=== PATIENT | female | born 2000 | race Caucasian/White ===

== ENCOUNTER → 2023-06-11 | Outpatient (CLI) | payer BC ==
[~2023-06-11] MED LIST: ACET325T38 PO; CEPH500T PO; CETI10CA PO; [UNRECOGNIZED DRUG - OTHER] EACH EAR
--- NOTE | 2023-06-11 09:28 | Diagnostic Imaging Report ---
PROCEDURE: CT chest, abdomen, and pelvis without contrast. TECHNIQUE: Multiple contiguous axial images were obtained through the chest, abdomen, and pelvis without the use of intravenous contrast. Auto Exposure Controls were utilized during the CT exam to meet ALARA standards for radiation dose reduction. INDICATION: Epigastric pain, chest pain. COMPARISON: None available. FINDINGS: No significant adenopathy within the chest. No aneurysmal dilatation of the thoracic aorta. The heart is within normal limits in size. No pericardial effusion. No pleural effusion. The trachea is patent. No pneumothorax. The lungs are clear. No acute osseous abnormality within the chest. No significant hiatal hernia. The unenhanced liver and spleen are at the upper limits of normal in size, though are otherwise unremarkable. The adrenal glands are unremarkable. The unenhanced pancreas is unremarkable. The gallbladder is unremarkable. The unenhanced bilateral kidneys and ureters are unremarkable. No aneurysmal dilatation of the abdominal aorta. The urinary bladder is unremarkable. Intrauterine device is in place within the central aspect of the uterus. Adnexal structures are unremarkable for age. The appendix is unremarkable. No bowel obstruction or pneumatosis. Moderate sized stool ball within the rectal vault and distal sigmoid colon. No significant adenopathy, free air, or free fluid within the abdomen or pelvis. No acute osseous abnormality. IMPRESSION: No acute abnormality identified. Moderate amount of stool within the distal colon. Intrauterine device in place within the central aspect of the uterus. Additional findings as above. Dictated by: Dictated on workstation # [id number]
== END ==
LOC: RAD 07:07
PROVIDERS: ATTEND Nurse Practitioner Family
DX: K56.41 Fecal impaction (principal); R07.89 Other chest pain; H66.003 Acute suppurative otitis media without spontaneous rupture of ear drum, bilateral; L60.0 Ingrowing nail; H92.03 Otalgia, bilateral; Z91.014 Allergy to mammalian meats; Z97.5 Presence of (intrauterine) contraceptive device
CPT/HCPCS: 71250; 74176

== ENCOUNTER → 2023-06-13 | Outpatient (CLI) | payer BC ==
[~2023-06-13] MED LIST changes: +CATHETER FLUSH 10 ML SYR IVP PRN
--- NOTE | 2023-06-13 19:14 | Diagnostic Imaging Report ---
INDICATION: Epigastric pain. EXAMINATION: HIDA scan 06/13/2023. FINDINGS: After uneventful administration of 5.48 mCi of technetium 99m Choletec intravenously. Subsequent imaging was performed with prompt homogeneous uptake throughout the liver. Gallbladder and small bowel seen within less than 60 minutes. Subsequent administration of Ensure administered orally with continued imaging performed. Ejection fraction calculated at 7%. IMPRESSION: 1. No obstructive process. 2. Low ejection fraction. This is suggestive of chronic cholecystitis versus gallbladder dyskinesia. Correlate with symptoms. Dictated by: Dictated on workstation # [id number]
== END ==
LOC: CARD 11:22
PROVIDERS: ATTEND Nurse Practitioner Family
DX: R10.13 Epigastric pain (principal); R07.9 Chest pain, unspecified; H66.003 Acute suppurative otitis media without spontaneous rupture of ear drum, bilateral; L68.0 Hirsutism; H92.03 Otalgia, bilateral; Z91.014 Allergy to mammalian meats
CPT/HCPCS: 78227; A9537

== ENCOUNTER 2023-06-26 08:48 | Outpatient (CLI) | payer BC ==
[~2023-06-26] VITALS: Ht 167.7 cm; Wt 98.2 kg
[~2023-06-26 08:48] MED LIST changes: -CATHETER FLUSH 10 ML SYR IVP PRN
[2023-06-26] MEDS ORDERED: IBUP200C11 PO (09:39)
[2023-06-27] MEDS ORDERED: HYDR-3817 PO (15:47)
== END 2023-06-26 10:02 | disposition home or self-care (01) ==
LOC: PREOP 08:48
PROVIDERS: ATTEND Surgery
DX: Z01.818 Encounter for other preprocedural examination (principal)

== ENCOUNTER 2023-06-27 15:34 | Day surgery (SDC) | payer BC ==
[~2023-06-27] VITALS: Ht 168 cm; Wt 98.2 kg
[2023-06-27] VITALS (7 sets, daily range): BP systolic 108–136; BP diastolic 72–87
[~2023-06-27 15:34] MED LIST changes: +IBUP200C11 PO
[2023-06-27] MEDS ORDERED: morphine INJ 10 MG/ML 1ML (SYR OR VIAL) IVP PRN (15:45)
[2023-06-27] MEDS ORDERED: HYDROcodone/ACETAMINOPHEN 5 MG/325 MG TABLET PO ONE (15:45)
[2023-06-27] MEDS ORDERED: ONDANSETRON INJECTION 4 MG/2 ML (SDV) IVP PRN ×2 (15:45→18:45)
[2023-06-27] MEDS ORDERED: ACETAMINOPHEN 325 MG TABLET PO PRN (15:45)
--- NOTE | 2023-06-27 15:45 | Progress Note-Pre Operative ---
Pre-Operative Progress Note Date H&P Reviewed: Jun 27, 2023 Time H&P Reviewed: 15:45 History & Physical: H&P Reviewed, Patient Examed, No changes noted Pre-Operative Diagnosis: Symptomatic Biliary Dyskinesia CHRISSY MONCADA APRN Jun 27, 2023 15:45
[2023-06-27] MEDS ORDERED: HYDR-3817 PO (15:47)
--- NOTE | 2023-06-27 15:48 | Discharge Inst-Surgical ---
D/C Lap Instructions-KIDO Reconcile Patient Problems Problems Reviewed?: Yes New, Converted, or Re-Newed RX: RX on Chart Follow Up Appt in 2 weeks Activity as tolerated No driving for 24 hours No driving while on pain medications Incentive Spirometry use every 2 hours while awake Regular Diet Symptoms to Report: Fever over 101 degree F, Nausea/Vomiting Infection Signs and Symptoms to report: Increased redness, Foul odor of wound, Increased drainage Bathing instructions: May shower Operative Area Clean/Dry; Keep incision clean/dry If any problems/questions: Contact your physician or go to Emergency Room CHRISSY MONCADA APRN Jun 27, 2023 15:48
[2023-06-27] MEDS ORDERED: NS (IVPB) 50 ML 50 ML ONE (15:56)
[2023-06-27] MEDS ORDERED: ceFAZolin INJECTION 2,000 MG ONE (15:56)
[2023-06-27] MEDS: LACTATED RINGERS 1,000 ML 1,000 ML IV PRN ×2 (16:40→18:20)
[2023-06-27] MEDS ORDERED: ceFAZolin INJECTION 2,000 MG in NS (IVPB) 50 ML 50 ML IV ONE (16:45)
[2023-06-27] MEDS ORDERED: LIDOCAINE PF 2% 5 ML VIAL ONE (17:15)
[2023-06-27] MEDS ORDERED: MIDAZOLAM INJ 2 MG/2 ML VIAL ONE (17:15)
[2023-06-27] MEDS ORDERED: proPOfol INJECTION 200 MG/20 ML VIAL IV ONE (17:15)
[2023-06-27] MEDS ORDERED: SEVOFLURANE (ULTANE) 15 ML INHAL SOLN ONE ×2 (17:15→18:02)
[2023-06-27] MEDS ORDERED: fentaNYL INJECTION 100 MCG/2 ML VIAL ONE ×2 (17:15→19:08)
[2023-06-27] MEDS ORDERED: ONDANSETRON INJECTION 4 MG/2 ML (SDV) ONE (17:15)
[2023-06-27] MEDS ORDERED: LIDOCAINE/EPI 1%-1:200,000 (XYLOCAINE) 30 ML VIAL ONE (17:17)
[2023-06-27] MEDS ORDERED: LIDOCAINE/EPI 1%-1:200,000 (XYLOCAINE) 30 ML VIAL INJ ONE (18:03)
[2023-06-27] MEDS ORDERED: NEOSTIGMINE 1 MG/1ML 10 ML VIAL ONE (18:15)
[2023-06-27] MEDS ORDERED: GLYCOPYRROLATE INJ 0.2 MG/ML 2 ML VIAL ONE (18:15)
[2023-06-27] MEDS ORDERED: ROCURONIUM 50 MG/5 ML VIAL IV ONE (18:18)
--- NOTE | 2023-06-27 18:27 | Progress Note-Post Operative ---
Post-Operative Progess Note Surgeon (s)/Public Health Sanitarian Technician (s) Surgeon ALEX SALAZAR MD Public Health Sanitarian Technician: alfredito diaz POWDERED METAL SUPERVISOR Pre-Operative Diagnosis Symptomatic Biliary Dyskinesia Post-Operative Diagnosis same Procedure & Operative Findings Date of Procedure 06/27/23 Procedure Performed/Findings laparoscopic cholecystectomy Anesthesia Type get Estimated Blood Loss Estimated blood loss (mL): minimal Specimens/Packing Specimens Removed gallbladder ALEX SALAZAR MD Jun 27, 2023 18:27
--- NOTE | 2023-06-27 18:33 | Anesthesia-General Post-Op ---
General Patient Condition Mental Status/LOC: Same as Preop Cardiovascular: Satisfactory Nausea/Vomiting: Absent Respiratory: Satisfactory Pain: Controlled Complications: Absent Post Op Complications Complications None Follow Up Care/Instructions Patient Instructions None needed. Anesthesia/Patient Condition Patient Condition Patient is doing well, no complaints, stable vital signs, no apparent adverse anesthesia problems. No complications reported per nursing. ASHLY REYES CRNA Jun 27, 2023 18:33
[2023-06-27] MEDS ORDERED: morphine INJ 10 MG/ML 1ML (SYR OR VIAL) ONE (18:41)
[2023-06-27] MEDS ORDERED: MEPERIDINE INJ 50 MG/ML VIAL IVP ONE (18:45)
[2023-06-27] MEDS ORDERED: fentaNYL INJECTION 100 MCG/2 ML VIAL IVP ONE (18:45)
[2023-06-27] MEDS ORDERED: morphine INJ 10 MG/ML 1ML (SYR OR VIAL) IVP ONE (18:45)
[2023-06-27] MEDS ORDERED: MEPERIDINE INJ 50 MG/ML VIAL ONE (18:46)
--- NOTE | 2023-06-28 02:03 | OPERATIVE REPORT ---
DATE OF SERVICE: 06/27/2023 PREOPERATIVE DIAGNOSIS: Symptomatic biliary dyskinesia. POSTOPERATIVE DIAGNOSIS: Symptomatic biliary dyskinesia. PROCEDURE: Laparoscopic cholecystectomy. SURGEON: Alex Salazar MD SPECIAL PROJECTS COORDINATOR: Donald Sanchez APRN ANESTHESIA: General endotracheal. ESTIMATED BLOOD LOSS: Minimal. FINDINGS: Biliary sludge. DISPOSITION: The patient tolerated the procedure well. INDICATIONS: The patient is a 22-year-old female who has had a six-week history of right upper abdominal quadrant pain with associated abdominal bloating and nausea after eating meals. She states that this has progressively worsened in severity and become more frequent as well. She underwent an ultrasound, which did not show any gallstones; however, this was followed by a HIDA scan, which showed a low ejection fraction of 7% as well as reproduction of symptoms with the administration of the Kinevac analogue consistent with biliary dyskinesia. DESCRIPTION OF PROCEDURE: The patient was brought to the operating room, laid supine on the table. After adequate IV pain and sedative medications and general endotracheal intubation, the abdomen was prepped and draped in standard surgical fashion. A 0.5% Marcaine with epinephrine was then used to anesthetize the overlying skin in the left upper abdominal quadrant and a transverse skin incision made using a #15 blade. An 0 silk suture was applied to the medial aspect of the incision for retraction and a Veress needle inserted with a low opening pressure of 0 mmHg and the abdomen was then insufflated to 15 mmHg pressure. The Veress needle removed and a 5 mm trocar placed followed by a 5 mm 45-degree angle laparoscope visualizing the peritoneal cavity. A 4-quadrant abdominal exploration was performed. There were omental adhesions towards the fundus of the gallbladder, no gallbladder wall thickening. Under direct visualization, we then proceeded to place a supraumbilical 10 mm port after the skin and peritoneal lining were anesthetized using 0.5% Marcaine with epinephrine and a transverse skin incision made using a #15 blade. In a similar manner, a right upper abdominal quadrant 5 mm port was placed. The patient was then placed in reverse Trendelenburg position as well as plane right side up, left side down. The fundus of the gallbladder was then retracted anteriorly and superiorly. The omental adhesions were then taken down using electrocautery on the hook instrument. The hepatoduodenal ligament was then dissected with blunt dissection as well as electrocautery using the hook instrument as well as a [place] dissector. The entire critical view of safety was identified including the triangle of Calot as well as the cystic duct and artery as the only 2 structures going into the gallbladder as well as the cystic plate behind the proximal gallbladder. A timeout was then taken and the cystic duct and artery were then clipped proximally and distally and cut with EndoShears. The gallbladder was then dissected off of the liver bed using cautery on the hook instrument with visualization of good hemostasis as well as no leaking ducts of Luschka. The gallbladder was removed through the 10 mm port site using an EndoCatch bag. The 10 mm port site fascia and peritoneum were then closed under direct visualization using a Matteo-Enedina device and an 0 Vicryl suture. The abdomen was then desufflated and the remaining ports were removed. All skin incisions were closed using 4-0 Monocryl running subcuticular sutures. Wounds were then cleaned and covered with Dermabond. The patient tolerated the procedure well. We will start IV normal pain medication as well as a clear liquid diet. Once she is tolerating clears with good pain control with oral pain medications, ambulating well, we will discharge her home where she will be instructed to do no heavy lifting or exertion for the next 2 weeks. Job ID: [id number] DocumentID: [id number] Dictated Date: 06/27/2023 18:33:21 Weather Strip Installer Date: 06/28/2023 02:01:00 Dictated By: ALEX SALAZAR MD
== END 2023-06-27 21:02 | disposition home or self-care (01) ==
LOC: SDC 15:34
PROVIDERS: ATTEND Surgery
DX: K81.1 Chronic cholecystitis (principal); K82.8 Other specified diseases of gallbladder; K66.0 Peritoneal adhesions (postprocedural) (postinfection); Z28.310 Unvaccinated for COVID-19
CPT/HCPCS: 84703; 87081